=== PATIENT | female | born 1955 | race Caucasian/White ===

== ENCOUNTER 2016-11-04 10:18 | Emergency (ER) | payer OTHER ==
[2016-11-04 10:31] VITALS: TEMP 97.9; BMI 55.3
--- NOTE | 2016-11-04 11:23 | EDPRACDOC ---
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 REPORTS PAIN TO LEFT WRIST AND NECK. Injuries/Pain Location: Reports: neck, upper extremity (LEFT WRIST) Reason for Fall: Reports: tripped Loss of Consciousness: no loss of consciousness Associated Symptoms (Fall): Denies: chest pain, lightheadedness, nausea/vomiting Allergies/Adverse Reactions: Allergies No Known Allergies Allergy (Verified 11/04/16 11:13) Home Medications: Ambulatory Orders Furosemide [Lasix] 40 mg PO BID 11/04/16 Ibuprofen Tablet [Motrin] 600 mg PO Q6H #30 tab 11/04/16 Levothyroxine [Synthroid, Levoxyl] 50 mcg PO DAILY 11/04/16 Oxycodone HCl [Roxicodone] 5 mg PO Q4-6H PRN #15 tablet 11/04/16 ED Past Medical History - History Reviewed Yes Nurses notes reviewed and agree except as marked - Patient Medical History Systemic History: Reports: Hypothyroidism Surgical History: Reports: Cholecystectomy. Denies: Hysterectomy - Social Medical History Smoking Status: Former smoker Lives In: Home EDM Review of Systems - Review of Systems ROS Negative Except as Marked: Yes All systems reviewed and were negative except as marked Musculoskeletal: Neck, Wrist (LEFT) - Physical Exam Constitutional: Alert Oriented to: Time, Person, Place Last recorded Vital Signs: Last Vital Signs Temp 97.9 F 11/04/16 10:26 Pulse 80 11/04/16 10:26 Resp 18 11/04/16 10:26 BP 154/72 11/04/16 10:26 Pulse Ox 99 11/04/16 10:26 Oxygen Pulse Oxygen Saturation 99 O2 Device Oxygen Flow Rate Fraction of Inspired Oxygen ( FIO2) - HEENT Head: negative: Deformity, Laceration Eye Exam: negative: Conjunctival Injection, Pale Conjunctiva Oropharynx: negative: Membranes Dry Nose: negative: Congestion, Discharge Neck: negative: Crepitus, In Collar, Limited ROM, Paraspinal Tenderness - Respiratory/Cardiovascular Respiratory: Normal - CTA. negative: Accessory Muscle Use, Diminished, Tachypnea Cardiovascular: negative: Bradycardia, Tachycardia, Irregular - GI Auscultation: Normal Palpation: Normal Tenderness: Non tender - Musculoskeletal Extremities: Radial Pulse (PALPABLE) - Integumentary Skin: Warm, Dry. negative: Rash - Neurologic Memory Impaired: Normal Motor Function: Normal Mood Description: Anxious, Appropriate Thought: Coherent Perception: Normal Decision Time to Discharge: 12:41 - Departure Yes I personally saw and evaluated the patient. Disposition: Home Condition: Stable Final Diagnosis: Left wrist sprain Qualifiers: Encounter type: initial encounter Qualified Code(s): S63.502A - Unspecified sprain of left wrist, initial encounter Cervical strain Qualifiers: Encounter type: initial encounter Qualified Code(s): S16.1XXA - Strain of muscle, fascia and tendon at neck level, initial encounter Instructions: Cervical Strain (ED), Wrist Injury (ED), RICE: Routine Care for Injuries Education/Counseling Given To: Patient Education/Counseling Given Regarding: Diagnosis, Treatment, Prognosis, Follow Up Referrals: Laura Ornelas MD [Primary Care Provider] - As Needed Prescriptions: New Ibuprofen Tablet [Motrin] 600 mg PO Q6H #30 tab Oxycodone HCl [Roxicodone] 5 mg PO Q4-6H PRN #15 tablet PRN Reason: Breakthrough Pain Continue Furosemide [Lasix] 40 mg PO BID Levothyroxine [Synthroid, Levoxyl] 50 mcg PO DAILY Forms: Excuse Note
--- NOTE | 2016-11-04 12:15 | DIRPT ---
CLINICAL DATA: Fall, tripped at work today , posterior neck pain EXAM: CT CERVICAL SPINE WITHOUT CONTRAST TECHNIQUE: Multidetector CT imaging of the cervical spine was performed without intravenous contrast. Multiplanar CT image reconstructions were also generated. COMPARISON: None. FINDINGS: Axial images of the cervical spine shows no acute fracture or subluxation. Computer processed images shows degenerative changes C1-C2 articulation. No acute fracture or subluxation. There is disc space flattening with mild anterior and mild posterior spurring with mild posterior disc bulge at C5-C6 level. Minimal disc space flattening with mild anterior spurring at C7-T1 level. No prevertebral soft tissue swelling. There is mild disc space flattening with moderate anterior spurring at T1-T2 level. Mild anterior spurring with minimal disc space flattening at T2-T3 level. There is no pneumothorax in visualized lung apices. Cervical airway is patent. IMPRESSION: 1. No cervical spine acute fracture or subluxation. 2. Degenerative changes as described above. Electronically Signed By: Cristian Moore M.D. On: 11/04/2016 12:13
--- NOTE | 2016-11-04 12:30 | DIRPT ---
CLINICAL DATA: Pain after fall. EXAM: LEFT WRIST - COMPLETE 3+ VIEW COMPARISON: None. FINDINGS: There is no evidence of fracture or dislocation. There is no evidence of arthropathy or other focal bone abnormality. Soft tissues are unremarkable. IMPRESSION: Negative. Electronically Signed By: Ross Griggs III, M.D On: 11/04/2016 12:27
[2016-11-04] MEDS ORDERED: OXYCODONE HCL 5 MG TABLET PO STA (13:05)
[2016-11-04 13:27] VITALS: BP 182/88; PULSE 92
== END 2016-11-04 13:25 | disposition home or self-care (01) ==
LOC: ED 10:18
DX: S63.502A Unspecified sprain of left wrist, initial encounter (principal); S16.1XXA Strain of muscle, fascia and tendon at neck level, initial encounter; W19.XXXA Unspecified fall, initial encounter; Y93.89 Activity, other specified; Y99.0 Civilian activity done for income or pay
CPT/HCPCS: 72125; 73110; 80307; 99283; J3490